=== PATIENT | male | born 1935 | race Caucasian/White ===

== ENCOUNTER → 2017-07-29 | Outpatient (CLI) | payer MEDICARE, BC ==
[~2017-07-29] MED LIST: REGADENOSON INJ 0.4 MG/5 ML DISP.SYRIN IV ONE
--- NOTE | 2017-07-29 18:22 | DRAGON STRESS TEST REPORT ---
INTRAVENOUS LEXISCAN CARDIOLITE STRESS TEST USING SINGLE PHOTON EMMISION COMPUTERIZED TOMOGRAPHIC. DATE OF PROCEDURE: July 29, 2017, INDICATION : Dyspnea CARDIAC RISK FACTORS: Diabetes, hypertension, dyslipidemia, known history of CAD with prior stent placement. RESTING EKG: Sinus rhythm without any baseline ST-T wave changes. STRESS EKG: No significant ST segment changes noted with LexiScan bolus REASON FOR TERMINATION: Protocol. PROCEDURE REPORT: Baseline heart rate 68 beats per minute with blood pressure of 124/62. Patient had no significant complaints. Patient was bolused with Lexiscan 0.4 mg intravenously followed by saline bolus. Heart rate at 2 minutes post bolus 85 with a blood pressure of 124/41. 3 minutes post bolus heart rate 87 with blood pressure of 117/44. No significant EKG changes were noted. Patient had no significant complaints during the procedure or postprocedure. Patient injected with Aminophyllin 75 mg at 3 minutes or later after Lexiscan bolus. CONCLUSIONS: Normal EKG and hemodynamic response to IV LexiScan. NUCLEAR DATA: At rest the patient was given 13.76 millicuries of technetium 99 sestamibi injected intravenously. As per protocol rest gated SPECT images were obtained. On day of stress test, the patient was given intravenous LexiScan at a dose of 0.4 mg in 5 mL intravenously, followed by flush with normal saline. Subsequently the stress dose of 44.8 millicuries of technetium 99 sestamibi was injected intravenously. As per protocol stress gated images were obtained. NUCLEAR INTERPRETATION: Both raw and processed data were used for interpretation. Visual, qualitative, computer-generated quantitative data was used. There was good myocardial uptake of technetium compound. Motion artifact and soft tissue attenuations were noted. Increased visceral uptake was noted. No definitive areas of transient perfusion defect noted, moderate fixed defect noted indicative of moderate scar in the basal and mid inferolateral wall of the left ventricle with minimal area of surrounding transient perfusion defect with SDS of only 2 therefore not significant area ischemia. EKG gated imaging showed LV EF at 49 %, rest and stress gated EF similar visually. T. I D. ratio was 1.22. Lung heart ratio noted to be within normal limits 0.36. No significant extracardiac and abnormal radiotracer activities were noted. RV free wall uptake was noted to be WNL. IMPRESSION: Also refer to comments under nuclear interpretation. Also test results needs to be interpreted in the context of pretest probability. 1. No definitive areas of transient perfusion defect noted. 2. Moderate fixed defect noted indicative of moderate scar in the basal and mid inferolateral wall of the left ventricle with minimal area of surrounding transient perfusion defect with SDS of only 2 therefore not significant area ischemia. 3. EKG gated imaging shows left ventricular ejection fraction of approx. 49 %. 4. Clinical correlation requested as occasionally single vessel disease or balanced ischemia could be missed. In approximately 10% of the cases Lexiscan may not cause adequate vasodilatory stress. RECOMMENDATIONS: Aggressive risk factor modification and medical management. Further evaluation may be needed if continued symptoms or other high risk indicators are noted on clinical evaluation. Close cardiology follow-up is also recommended. Clinical correlation with echocardiogram derived ejection fraction. Inability to exercise by itself can lead to increased cardiovascular event risks. Consider cardiology consultation and or follow-up if clinically indicated. I am available for cardiology evaluation and consultation if requested by the sea foam kiss maker, unless patient already has a bias cutter helper. PAIGE
== END ==
LOC: RAD 08:00
PROVIDERS: ATTEND Internal Medicine Cardiovascular Disease
DX: R06.00 Dyspnea, unspecified (principal); E11.9 Type 2 diabetes mellitus without complications; I10 Essential (primary) hypertension; E78.5 Hyperlipidemia, unspecified; I25.10 Atherosclerotic heart disease of native coronary artery without angina pectoris
CPT/HCPCS: 93017; 78452; A9500; J2785; Q9969

== ENCOUNTER → 2018-02-01 | Outpatient (CLI) | payer MEDICARE, BC ==
--- NOTE | 2018-02-01 13:49 | RADIOLOGY REPORT (SQ) ---
EXAM DESCRIPTION: CT CHEST WITHOUT COMPLETED DATE/TIME: 02/01/2018 1:21 pm REASON FOR STUDY: R06.00 DYSPNEA, UNSPECIFIED R06.00 DYSPNEA, UNSPECIFIED COMPARISON: None. TECHNIQUE: CT scan performed of the chest without intravenous contrast. Images reviewed with lung, soft tissue and bone windows. Reconstructed coronal and sagittal MPR images reviewed. All images st ored on PACS. All CT scanners at this facility use dose modulation, iterative reconstruction, and/or weight based d osing when appropriate to reduce radiation dose to as low as reasonably achievable (ALARA). [facility]: Dose Right [facility]: CareDose [facility]: Dose Right [facility]: Teradose 4D [facility]: [employer] RADIATION DOSE: CT Rad equipment meets quality standard of care and radiation dose reduction techniq ues were employed. CTDIvol: 18.7 mGy. DLP: 708 mGy-cm. mGy. LIMITATIONS: No technical limitations. FINDINGS: LUNGS AND PLEURA: Chronic appearing elevation right hemidiaphragm with bandlike scarring o r atelectasis at the right lung base. On the left side there are pleural calcifications without pleural fluid. No focal infiltrates. No pulmonary nodules. No pneumothorax. Airways are patent. HILAR AND MEDIASTINAL STRUCTURES: No identified masses or abnormal nodes. No obvious aneurysm. HEART AND VASCULAR STRUCTURES: No aneurysm. No pericardial effusion. Dense coronary artery calcific ation versus multiple stents along the LAD UPPER ABDOMEN: Clips post cholecystectomy THYROID AND OTHER SOFT TISSUES: No masses. No adenopathy. BONES: No significant finding. HARDWARE: None in the chest. OTHER: No other significant findings. IMPRESSION: Chronic elevation right hemidiaphragm with bandlike atelectasis. TECHNICAL DOCUMENTATION: JOB ID: [id number] Quality ID # [id number]: Final reports with documentation of one or more dose reduction techniques (e.g., Au tomated exposure control, adjustment of the mA and/or kV according to patient size, use of iterative reconstruction technique) 2010 [employer]- All Rights Reserved Reading location - IP/workstation name: [email or web address]
== END ==
LOC: RAD 15:07
PROVIDERS: ATTEND Internal Medicine Pulmonary Disease
DX: R06.00 Dyspnea, unspecified (principal)
CPT/HCPCS: 71250

== ENCOUNTER 2018-08-06 18:11 | Inpatient (IN) | payer MEDICARE, BC ==
[2018-08-06] MEDS ORDERED: ASPIRIN 81 MG TABLET, CHEWABLE PO ONE (19:06)
[2018-08-06] MEDS ORDERED: DIPH/PERTUSS(ACELL)/TETANUS VAC/PF 0.5 ML SYR (>=10YO) IM ONE (19:07)
--- NOTE | 2018-08-06 19:14 | ER Document Report ---
ED Medical Screen (RME) - General Chief Complaint: Chest Pain Stated Complaint: CHEST PAIN Time Seen by Provider: 08/06/18 19:06 Primary Care Provider: DENAE RAMIREZ MD [Primary Care Provider] - Follow up as needed Mode of Arrival: Wheelchair Information source: Patient Notes: Patient states that he was walking this afternoon and fell. Patient complains of right-sided chest pain and does not recall if he had pain before the fall but definitely had pain after the fall. Patient is uncertain what may have caused him to fall. Patient also complains of abrasions to the bilateral knee area and right hand pain with swelling. Patient denies any headache pain. Patient's states that her told her that he may have fainted, patient presently denies this. hx: Hypothyroid, COPD, hypertension, cardiac stents I have greeted and performed a rapid initial assessment of this patient. A comprehensive ED assessment and evaluation of the patient, analysis of test results and completion of the medical decision making process will be conducted by additional ED providers. TRAVEL OUTSIDE OF THE [place] IN LAST 30 DAYS: No - Related Data Allergies/Adverse Reactions: codeine [Codeine] Allergy (Intermediate, Verified 04/06/11 15:23) Past Medical History - Past Medical History Cardiac Medical History: Reports: Hx Hypercholesterolemia, Hx Hypertension - MEDICATED Denies: Hx Heart Attack Pulmonary Medical History: Denies: Hx Asthma Neurological Medical History: Denies: Hx Cerebrovascular Accident, Hx Seizures GI Medical History: Denies: Hx Hepatitis, Hx Hiatal Hernia, Hx Ulcer Infectious Medical History: Denies: Hx Hepatitis Past Surgical History: Denies: Hx Open Heart Surgery, Hx Pacemaker - Immunizations Hx Diphtheria, Pertussis, Tetanus Vaccination: No Physical Exam - Vital signs Vitals: Temp Pulse Resp BP Pulse Ox 97.2 F 58 L 13 131/47 H 95 08/06/18 18:32 08/06/18 18:32 08/06/18 18:32 08/06/18 18:32 08/06/18 18:32 - General Notes: Abrasions to face, right knee, bruising with swelling to right hand - Respiratory Chest status: Tender - Right anterior chest wall tenderness Course - Vital Signs Vital signs: Temp Pulse Resp BP Pulse Ox 97.2 F 58 L 13 131/47 H 95 08/06/18 18:32 08/06/18 18:32 08/06/18 18:32 08/06/18 18:32 08/06/18 18:32 Doctor's Discharge - Discharge Referrals: DENAE RAMIREZ MD [Primary Care Provider] - Follow up as needed
[2018-08-06 20:01] LABS: ABSOLUTE BASOPHILS # (AUTO) 0.1 10^3/uL (0.0-0.2); ABSOLUTE EOSINOPHILS # (AUTO) 0.6 10^3/uL (0.0-0.6); ABSOLUTE LYMPHOCYTES (AUTO) 2.5 10^3/uL (0.5-4.7); ABSOLUTE MONOCYTES (AUTO) 1.3 10^3/uL (0.1-1.4); ABSOLUTE NEUT (AUTO) 6.5 10^3/uL (1.7-8.2); BASOPHILS % (AUTO) 0.8 % (0-2); EOSINOPHILS % (AUTO) 5.8 % (0-6); HEMOGLOBIN 12.9 g/dL (13.5-17.0); LYMPHOCYTES % (AUTO) 22.7 % (13-45); MEAN CORPUSCULAR HEMOGLOBIN 27.8 pg (27.0-33.4); MEAN CORPUSCULAR VOLUME 84 fl (80-97); MONOCYTES % (AUTO) 11.5 % (3-13); PLATELET COUNT 273 10^3/uL (150-450); RED BLOOD COUNT 4.62 10^6/uL (4.35-5.55); RED CELL DISTRIBUTION WIDTH 14.4 % (11.5-14.0); SEGMENTED NEUTROPHILS % (AUTO) 59.2 % (42-78); TOTAL CELLS COUNTED % (AUTO) 100 %
[2018-08-06 20:25] LABS: ALANINE AMINOTRANSFERASE 14 U/L (21-72); ALBUMIN 4.3 g/dL (3.5-5.0); ALKALINE PHOSPHATASE 74 U/L (38-126); ANION GAP 10 (5-19); ASPARTATE AMINO TRANSFERASE 33 U/L (17-59); BILIRUBIN,DIRECT 0.5 mg/dL (0.0-0.4); BILIRUBIN,TOTAL 0.5 mg/dL (0.2-1.3); BLOOD UREA NITROGEN 17 mg/dL (7-20); CALCIUM 9.7 mg/dL (8.4-10.2); CARBON DIOXIDE 28 mmol/L (22-30); CHLORIDE 103 mmol/L (98-107); GLUCOSE 163 mg/dL (75-110); POTASSIUM 4.3 mmol/L (3.6-5.0); SODIUM 140.6 mmol/L (137-145); TOTAL PROTEIN 7.9 g/dL (6.3-8.2)
--- NOTE | 2018-08-06 20:41 | RADIOLOGY REPORT (SQ) ---
EXAM DESCRIPTION: XR HAND 3 OR MORE VIEWS COMPLETED DATE/TME: 08/06/2018 19:07 EXAM DESCRIPTION: CLINICAL HISTORY: fall, hand injury COMPARISON: None FINDINGS: Three x-ray views of the right hand were submitted. There is narrowing of the interphalangeal joints and osteophytic formation more pronounced at the second and third distal interphalangeal joint. There is also narrowing of the first carpometacarpal junction. There is no acute fracture or dislocation. Bone mineralization is within normal limits. There is no radiopaque foreign body material. IMPRESSION: No acute fracture or dislocation.
--- NOTE | 2018-08-06 20:46 | RADIOLOGY REPORT (SQ) ---
EXAM DESCRIPTION: XR CHEST 2 VIEWS COMPLETED DATE/TME: 08/06/2018 19:06 CLINICAL HISTORY: fall, cp COMPARISON: CT February 01, 2018 FINDINGS: Cardiac silhouette is within normal limits. There is elevation of the right hemidiaphragm. Unchanged compared with the prior exam. EKG leads project over the chest. Linear calcification at the level of the left hemidiaphragm compatible with a calcified pleural plaque. There is no acute osseous process visualized. IMPRESSION: No evidence of acute cardiopulmonary disease.
--- NOTE | 2018-08-06 20:52 | RADIOLOGY REPORT (SQ) ---
EXAM DESCRIPTION: CT HEAD WITHOUT IV CONTRAST COMPLETED DATE/TME: 08/06/2018 19:13 CLINICAL HISTORY: fall, facial abrasions COMPARISON: None Available. TECHNIQUE: Contiguous axial images of the brain were obtained without the administration of intravenous contrast.This exam was performed according to our departmental dose-optimization program, which includes automated exposure control, adjustment of the mA and/or kV according to patient size and/or use of iterative reconstruction technique. FINDINGS: There is no acute intracranial hemorrhage or mass effect. There is atherosclerosis. Areas of low attenuation in the periventricular and subcortical white matter are nonspecific but suggestive of small vessel disease. There is generalized atrophy. Ventricular system is within normal limits. There is adequate galarza-white matter differentiation. There is no skull fracture. Abnormal opacification of the left sphenoid sinus compatible with chronic sinusitis changes. IMPRESSION: No acute intracranial abnormalities.
--- NOTE | 2018-08-06 20:56 | RADIOLOGY REPORT (SQ) ---
EXAM DESCRIPTION: CT CERVICAL SPINE WITHOUT IV CONTRAST COMPLETED DATE/TME: 08/06/2018 19:11 CLINICAL HISTORY: fall COMPARISON: None Available TECHNIQUE: Contiguous axial images of the cervical spine were obtained without the administration of intravenous contrast followed by reconstruction images. This exam was performed according to our departmental dose-optimization program, which includes automated exposure control, adjustment of the mA and/or kV according to patient size and/or use of iterative reconstruction technique. FINDINGS: There is no acute fracture or subluxation. Prevertebral soft tissues are within normal limits. There is right neural foramina narrowing at C3-C4 and bilateral neural foramina narrowing at C4-C5, IMPRESSION: No acute fracture or subluxation. Degenerative changes.
--- NOTE | 2018-08-06 22:09 | RADIOLOGY REPORT (SQ) ---
EXAM DESCRIPTION: Right ribs RadLex: XR RIBS 2 VIEWS UNILATERAL CLINICAL HISTORY: 82 years Male, right anterior rib pain at ribs 1-4, ecchymosis COMPARISON: Chest radiograph today FINDINGS: No acute displaced rib fractures. There is elevation of right hemidiaphragm and right upper quadrant surgical clips, as seen on the chest radiograph. No pneumothorax. No lytic or blastic right rib lesions. IMPRESSION: No right rib fracture or focal right rib lesion.
[2018-08-06 22:35] LABS: APPEARANCE,URINE CLEAR; BILIRUBIN,URINE NEGATIVE (NEGATIVE); COLOR,URINE YELLOW; GLUCOSE, URINE NEGATIVE (NEGATIVE); KETONES,URINE NEGATIVE (NEGATIVE); LEUKOCYTE ESTERASE,URINE NEGATIVE (NEGATIVE); NITRITE,URINE NEGATIVE (NEGATIVE); PROTEIN,URINE NEGATIVE (NEGATIVE); URINE SPECIFIC GRAVITY 1.018; UROBILINOGEN,URINE NEGATIVE mg/dL (<2.0)
--- NOTE | 2018-08-06 23:01 | ER Document Report ---
ED General - General Chief Complaint: Chest Pain Stated Complaint: CHEST PAIN Time Seen by Provider: 08/06/18 19:06 Primary Care Provider: DENAE RAMIREZ MD [Primary Care Provider] - Follow up as needed Mode of Arrival: Wheelchair Information source: Patient, Relative - , Son Notes: Patient is an 82-year-old male presented to the emergency department with compl aints of right-sided chest pain after suffering a fall. Patient reports he was out walking his dog when he thinks he may have passed out. He states he fell from a standing position onto concrete. He has an abrasion and ecchymosis noted to the right anterior chest wall which is where his pain is. He denies any symptoms prior to the fall. Patient reports past medical history of COPD, hypertension, stent placement and prediabetes. TRAVEL OUTSIDE OF THE [place] IN LAST 30 DAYS: No - Related Data Allergies/Adverse Reactions: codeine [Codeine] Allergy (Intermediate, Verified 04/06/11 15:23) Past Medical History - General Information source: Patient - Social History Smoking Status: Never Smoker Chew tobacco use (# tins/day): No Frequency of alcohol use: None Drug Abuse: None Family History: Reviewed & Not Pertinent Patient has suicidal ideation: No Patient has homicidal ideation: No - Past Medical History Cardiac Medical History: Reports: Hx Hypercholesterolemia, Hx Hypertension - MEDICATED Denies: Hx Heart Attack Pulmonary Medical History: Denies: Hx Asthma Neurological Medical History: Denies: Hx Cerebrovascular Accident, Hx Seizures Renal/ Medical History: Denies: Hx Peritoneal Dialysis GI Medical History: Denies: Hx Hepatitis, Hx Hiatal Hernia, Hx Ulcer Infectious Medical History: Denies: Hx Hepatitis Past Surgical History: Denies: Hx Open Heart Surgery, Hx Pacemaker - Immunizations Hx Diphtheria, Pertussis, Tetanus Vaccination: No Hx Pneumococcal Vaccination: 03/08/10 Review of Systems - Review of Systems Constitutional: No symptoms reported EENT: No symptoms reported Cardiovascular: Chest pain Respiratory: No symptoms reported Gastrointestinal: No symptoms reported Genitourinary: No symptoms reported Male Genitourinary: No symptoms reported Musculoskeletal: See HPI Skin: No symptoms reported Hematologic/Lymphatic: No symptoms reported Neurological/Psychological: No symptoms reported Physical Exam - Vital signs Vitals: Temp Pulse Resp BP Pulse Ox 97.2 F 58 L 13 131/47 H 95 08/06/18 18:32 08/06/18 18:32 08/06/18 18:32 08/06/18 18:32 08/06/18 18:32 - Notes Notes: PHYSICAL EXAMINATION: GENERAL: Well-appearing, well-nourished and in no acute distress. HEAD: Atraumatic, normocephalic. EYES: Pupils equal round and reactive to light, extraocular movements intact, sclera anicteric, conjunctiva are normal. ENT: Nares patent, oropharynx clear without exudates. Moist mucous membranes. NECK: Normal range of motion, supple without lymphadenopathy LUNGS: Breath sounds clear to auscultation bilaterally and equal. No wheezes ra les or rhonchi. HEART: Regular rate and rhythm without murmurs ABDOMEN: Soft, nontender, nondistended abdomen. No guarding, no rebound. No masses appreciated. Musculoskeletal: Normal range of motion, no pitting or edema. No cyanosis. Tenderness to palpation to anterior chest wall near ribs 1, 2, 3 and 4. NEUROLOGICAL: Cranial nerves grossly intact. Normal speech. Normal sensory, motor exams PSYCH: Normal mood, normal affect. SKIN: Warm, Dry, normal turgor, no rashes noted. Ecchymosis noted just distal to right clavicular area. Course - Re-evaluation Re-evalutation: Patient is alert, oriented, answering all questions appropriately and in no acute distress at the time of my evaluation. Vital signs have been within normal limits. All imaging is negative for any acute fractures or dislocations. CMP, CBC and troponin are negative. EKG shows a sinus rhythm rate of 68, QTc 464, normal axis, no ST segment elevations or depressions to suggest ischemia. Will consult hospitalist for possible admission for syncope work-up. Patient accepted for admission by Dr. Stahl. Patient and family members updated on plan of care and are agreeable to same. - Vital Signs Vital signs: Temp Pulse Resp BP Pulse Ox 97.2 F 58 L 13 121/61 95 08/06/18 18:32 08/06/18 18:32 08/06/18 21:01 08/06/18 21:01 08/06/18 21:01 - Laboratory Result Diagrams: 08/06/18 19:48 08/06/18 19:48 Laboratory results interpreted by me: 08/06/18 08/06/18 19:48 19:48 WBC 11.0 H Hgb 12.9 L RDW 14.4 H Glucose 163 H Direct Bilirubin 0.5 H ALT 14 L Discharge - Discharge Clinical Impression: Syncope, Fall Condition: Stable Disposition: ADMITTED OBSERVATION Admitting Provider: Favio (Hospitalist) Unit Admitted: Telemetry Referrals: DENAE RAMIREZ MD [Primary Care Provider] - Follow up as needed
[2018-08-06] MEDS ORDERED: TRAMADOL HCL 50 MG TABLET PO PRN (23:28)
[2018-08-06] MEDS ORDERED: TEMAZEPAM 7.5 MG CAPSULE PO PRN (23:31)
[2018-08-06] MEDS ORDERED: MAG HYDROX/AL HYDROX/SIMETH SUSP 30 ML UDCUP PO PRN (23:31)
[2018-08-06] MEDS ORDERED: MAGNESIUM HYDROXIDE SUSP 30 ML UDCUP PO PRN (23:31)
[2018-08-06] MEDS ORDERED: ONDANSETRON HCL INJ/PF 4 MG/2 ML SDV IV PRN (23:31)
[2018-08-06] MEDS ORDERED: LEVALBUTEROL HCL NEB 0.63 MG/3 ML AMPUL NEB PRN (23:36)
[2018-08-06] MEDS ORDERED: INSULIN REG, HUMAN 100 UNIT/ML 3 ML VIAL (PYX) SUBCUT PRN (23:36)
[2018-08-06] MEDS ORDERED: NALBUPHINE HCL INJ 10 MG/1 ML AMPULE IV PRN (23:36)
[2018-08-06] MEDS ORDERED: DEXTROSE 40% GEL 15 GM TUBE PO PRN ×2 (23:37)
[2018-08-06] MEDS ORDERED: DEXTROSE 50%-WATER 25 GM/50 ML DISP.SYRIN IV PRN ×2 (23:37)
[2018-08-06] MEDS ORDERED: GLUCAGON,HUMAN RECOMB 1 MG INJ IM PRN (23:37)
--- NOTE | 2018-08-06 23:43 | EKG REPORT ---
SEVERITY:- NORMAL ECG - SINUS RHYTHM : Confirmed by: Esla Santana MD 06-Aug-2018 23:43:02
[2018-08-06] MEDS ORDERED: ATORVASTATIN CALCIUM 20 MG TABLET PO ONE (23:45)
[2018-08-06] MEDS: LEVALBUTEROL HCL NEB 1.25 MG/3 ML AMPUL NEB SCH (23:57)
[2018-08-06] MEDS: IPRATROPIUM BROMIDE 0.02% NEB 0.5 MG/2.5 ML AMPUL NEB SCH (23:58)
[2018-08-07 00:29] LABS: CREATINE KINASE MB 0.45 ng/mL (<4.55); TROPONIN I < 0.012 ng/mL
--- NOTE | 2018-08-07 02:20 | PDOC H&P ---
History of Present Illness Admission Date/PCP: 08/06/2018 22:50 DENAE RAMIREZ MD Patient complains of: Syncopal episode History of Present Illness: GEOFF BROWN is a 82 year old male who presented to the emergency room with a syncopal episode. He admits that he was walking at home this afternoon and suddenly fell to the ground face first. He commented to his after the incident that he thought he may have fainted, and currently he has no memory of what may have caused him to fall. He remembers events prior to the fall and denies nausea, palpitations, dizziness, pain or other symptoms, but he does not remember the actual fall. He sustained contusions and abrasions to his face, right knee and both hands as well as a contusion to his right clavicular chest area in the fall. He complains only of mild local pain in his hands and mild to moderate pain in his right sub-clavicular chest. He denies prior similar episodes and has not identified any aggravating or ameliorating factors for his syncopal episode. In the emergency room he was found to have negative x-rays of his right hand, chest and ribs. He was also found to have a negative CT scan of his head and neck. He was subsequently admitted to the hospital for further evaluation. Past Medical History Cardiac Medical History: Reports: Coronary Artery Disease, Hyperlipidema, Hypertension - MEDICATED Denies: Myocardial Infarction Pulmonary Medical History: Reports: Bronchitis, Chronic Obstructive Pulmonary Disease (COPD) Denies: Asthma, Intubation, Respiratory Failure EENT Medical History: Reports: Eyes - Prescription lenses Denies: Cataracts, Ears - Hearing aids Neurological Medical History: Denies: Hemorrhagic CVA, Ischemic CVA, Seizures Endocrine Medical History: Reports: Diabetes Mellitus Type 2 - Prediabetic, Hypothyroidism Denies: Diabetes Mellitus Type 1, Hyperthyroidism Renal/ Medical History: Denies: Chronic Kidney Disease, Nephrolithiasis Malignancy Medical History: Reports: None GI Medical History: Denies: Cirrhosis, Hepatitis, Hiatal Hernia Musculoskeltal Medical History: Reports: Arthritis Denies: Fibromyalgia, Gout Skin Medical History: Denies: Eczema, Psoriasis Psychiatric Medical History: Denies: Alcohol Dependency, Substance Abuse, Tobacco Dependency Traumatic Medical History: Reports: None Hematology: Denies: Anemia, Bleeding Tendencies Infectious Medical History: Reports: None Past Surgical History Past Surgical History: Reports: Cardiac Catheterization, Coronary Stent Social History Information Source: Patient Lives with: Spouse/Significant other Smoking Status: Former Smoker - Smoked minimally in the very remote past Frequency of Alcohol Use: None Hx Recreational Drug Use: No Drugs: None Hx Prescription Drug Abuse: No - Advance Directive Resuscitation Status: Full Code Surrogate healthcare decision maker:: Trina Brown Family History Family History: Malignancy - Mother. denies: CAD, CVA, DM, Hypertension Parental Family History Reviewed: Yes Children Family History Reviewed: No Sibling(s) Family History Reviewed.: Yes Medication/Allergy Home Medications: Acidophilus/Pectin, [place] [Acidophilus [place]] 1 each PO DAILY 04/06/11 Atorvastatin Calcium [Lipitor 20 Mg Tablet] 20 mg PO QHS 04/06/11 Furosemide [Lasix 40 mg Tablet] 40 mg PO QAM 04/06/11 Losartan Potassium [Cozaar 50 Mg Tablet] 50 mg PO DAILY 04/06/11 Meloxicam 15 mg PO DAILY 04/06/11 Multivitamin [Multivitamins] 1 each PO DAILY 04/06/11 [place]-3 Fatty Acids/Fish Oil [Fish Oil 1,000 Mg Capsule] 1 each PO BID 04/06/11 Potassium Chloride [Klor-Con 10 Meq Tablet.sa] 10 meq PO DAILY 04/06/11 Clopidogrel Bisulfate [Plavix 75 mg Tablet] 75 mg PO DAILY 03/14/13 Levothyroxine Sodium [Synthroid] 100 mcg PO DAILY 03/14/13 Nepafenac [Ilevro] 1.7 ml OP DAILY 03/14/13 Tramadol HCl 50 mg PO DAILY 03/14/13 Allergies/Adverse Reactions: codeine [Codeine] Allergy (Intermediate, Verified 04/06/11 15:23) Review of Systems Constitutional: ABSENT: chills, fever(s) Eyes: ABSENT: visual disturbances, other - Eye pain Ears: ABSENT: hearing changes, other - Ear pain Nose, Mouth, and Throat: ABSENT: mouth pain, sore throat Cardiovascular: PRESENT: as per HPI, chest pain - Pain in the right clavicular region secondary to contusion sustained in fall. ABSENT: dyspnea on exertion, e gonzalez, orthropnea, palpitations Respiratory: ABSENT: cough, dyspnea Gastrointestinal: ABSENT: abdominal pain, constipation, diarrhea, nausea, vomiting Genitourinary: ABSENT: dysuria, hematuria Musculoskeletal: PRESENT: as per HPI, other - Contusions and abrasions of bilateral knees and right hand. ABSENT: back pain Integumentary: PRESENT: as per HPI, wounds - Abrasions of bilateral knees and right hand. ABSENT: pruritus, rash Neurological: PRESENT: as per HPI, syncope, other - States vaguely that his "head hasn't been right for a long time". He has been "foggy" for a couple of years.. ABSENT: confusion, convulsions, focal weakness, memory loss Psychiatric: ABSENT: anxiety, depression Endocrine: ABSENT: cold intolerance, heat intolerance Hematologic/Lymphatic: ABSENT: easy bleeding, easy bruising Physical Exam Vital Signs: Temp Pulse Resp BP Pulse Ox 97.2 F 58 L 13 121/61 95 08/06/18 18:32 08/06/18 18:32 08/06/18 21:01 08/06/18 21:01 08/06/18 21:01 Intake & Output 08/04/18 08/05/18 08/06/18 23:59 23:59 23:59 Weight 95.254 kg General appearance: PRESENT: no acute distress, cooperative Head exam: PRESENT: normocephalic. ABSENT: atraumatic - Mild contusions and moderate abrasions noted involving the nasal bridge Eye exam: ABSENT: conjunctival injection, scleral icterus Ear exam: PRESENT: normal external ear exam. ABSENT: bleeding, drainage Mouth exam: PRESENT: dry mucosa, neck supple Teeth exam: ABSENT: dental tenderness, other - No apparent dental injury Neck exam: ABSENT: JVD, thyromegaly, tracheal deviation Respiratory exam: PRESENT: chest wall tenderness - Mild tenderness to palpation in the right clavicular area of the right anterior chest., clear to auscultation catia, symmetrical, unlabored Cardiovascular exam: PRESENT: RRR. ABSENT: clicks, gallop, rubs Pulses: PRESENT: normal radial pulses, normal dorsalis pedis pul Vascular exam: PRESENT: normal capillary refill. ABSENT: pallor GI/Abdominal exam: PRESENT: normal bowel sounds, soft Rectal exam: PRESENT: deferred Extremities exam: PRESENT: tenderness - Contusions and abrasions of right knee and both hands (right greater than left). ABSENT: joint swelling, pedal edema Musculoskeletal exam: ABSENT: deformity, dislocation Neurological exam: PRESENT: alert, oriented to person, oriented to place, oriented to time, oriented to situation, CN II-XII grossly intact. ABSENT: mot or sensory deficit Psychiatric exam: PRESENT: appropriate affect, normal mood Skin exam: PRESENT: dry, warm, other - Contusions and abrasions of face/nose, right knee and both hands. ABSENT: jaundice, rash, urticaria Results Laboratory Results: 08/06/18 19:48 08/06/18 19:48 08/06/18 08/06/18 08/06/18 19:48 19:48 22:13 WBC 11.0 H RBC 4.62 Hgb 12.9 L Hct 39.0 MCV 84 MCH 27.8 MCHC 33.0 RDW 14.4 H Plt Count 273 Seg Neutrophils % 59.2 Lymphocytes % 22.7 Monocytes % 11.5 Eosinophils % 5.8 Basophils % 0.8 Absolute Neutrophils 6.5 Absolute Lymphocytes 2.5 Absolute Monocytes 1.3 Absolute Eosinophils 0.6 Absolute Basophils 0.1 Sodium 140.6 Potassium 4.3 Chloride 103 Carbon Dioxide 28 Anion Gap 10 BUN 17 Creatinine 1.15 Est GFR ( Amer) > 60 Est GFR (Non-Af Amer) > 60 Glucose 163 H Calcium 9.7 Total Bilirubin 0.5 AST 33 ALT 14 L Alkaline Phosphatase 74 Total Protein 7.9 Albumin 4.3 Urine Color YELLOW Urine Appearance CLEAR Urine pH 5.0 Ur Specific [place] 1.018 Urine Protein NEGATIVE Urine Glucose (UA) NEGATIVE Urine Ketones NEGATIVE Urine Blood NEGATIVE Urine Nitrite NEGATIVE Ur Leukocyte Esterase NEGATIVE Urine WBC (Auto) 1 Urine RBC (Auto) 1 08/06/18 19:48 Troponin I < 0.012 Impressions: Chest X-Ray 08/06/18 19:06 IMPRESSION: No evidence of acute cardiopulmonary disease. Hand X-Ray 08/06/18 19:07 IMPRESSION: No acute fracture or dislocation. Cervical Spine CT 08/06/18 19:11 IMPRESSION: No acute fracture or subluxation. Degenerative changes. Head CT 08/06/18 19:13 IMPRESSION: No acute intracranial abnormalities. Ribs X-Ray 08/06/18 21:20 IMPRESSION: No right rib fracture or focal right rib lesion. Assessment and Plan - Diagnosis (1) Episode of syncope Qualifiers: Syncope type: unspecified Qualified Code(s): R55 - Syncope and collapse Is this a current diagnosis for this admission?: Yes Plan: Patient will be evaluated with a carotid Doppler and an echocardiogram as well as telemetry monitoring throughout his hospital course. Potential causes of syncope will be evaluated utilizing a thyroid profile and serial metabolic profiles, magnesium levels and Accu-Cheks. (2) Coronary artery disease Qualifiers: Coronary Disease-Associated Artery/Lesion type: [place] artery [place] vs. transplanted heart: [place] heart Associated angina: without angina Qualified Code(s): I25.10 - Atherosclerotic heart disease of [place] coronary artery without angina pectoris Is this a current diagnosis for this admission?: Yes Plan: Patient will be continued on his current medical regiment for coronary artery disease with adjustments made only as required for therapeutic reasons. He will be monitored on telemetry. (3) Hypertension Qualifiers: Hypertension type: essential hypertension Qualified Code(s): I10 - Essen tial (primary) hypertension Is this a current diagnosis for this admission?: Yes Plan: Patient be continued on his current antihypertensive regiment with changes being made only as required for therapeutic reasons. His vital signs will be mon itored closely during his hospital course. (4) Chronic obstructive pulmonary disease Qualifiers: COPD type: unspecified COPD Qualified Code(s): J44.9 - Chronic obstructive pulmonary disease, unspecified Is this a current diagnosis for this admission?: Yes Plan: Patient be maintained on a routine therapeutic regiment for chronic obstructive pulmonary disease during his hospital course utilizing nebulized Xopenex, Atrovent and Pulmicort. He will receive supplemental oxygen if required. (5) Contusion of right chest wall Qualifiers: Encounter type: initial encounter Qualified Code(s): S20.211A - Contusion of right front wall of thorax, initial encounter Is this a current diagnosis for this admission?: Yes Plan: Patient will have available acetaminophen and tramadol for pain control with Nubain 10 mg IV every 3 hours as needed for more severe pain. (6) Multiple abrasions Is this a current diagnosis for this admission?: Yes Plan: Bactroban ointment will be applied to abrasions 2 times daily and dressings will be applied as needed. Wounds will be cleansed 2 times daily with soap and water prior to dressing. Wound will be closely observed for any signs of infect ion or excessive bleeding. - Time Time Spent with patient: 25-34 minutes Medications reviewed and adjusted accordingly: Yes Anticipated discharge: Home - Inpatient Certification Based on my medical assessment, after consideration of the patient's comorbidities, presenting symptoms, or acuity I expect that the services needed warrant INPATIENT care.: Yes I certify that my determination is in accordance with my understanding of Medicare's requirements for reasonable and necessary INPATIENT services [42 CFR 412.3e].: Yes Medical Necessity: Significant Comorbidiites Make Outpatient Treatment Too Risky, Need Close Monitoring Due to Risk of Patient Decompensation, Need For Continuous Telemetry Monitoring, Need for Neurological Checks, Need for Pain Control, Risk of Complication if Not Cared For in Hospital
[2018-08-07] MEDS ORDERED: HEPARIN SOD (PORCINE) 5,000 UNIT/ML 1 ML SYRINGE SUBCUT SCH (06:00)
[2018-08-07 06:34] LABS: HEMATOCRIT 38.1 % (37.9-51.0); HEMOGLOBIN 12.4 g/dL (13.5-17.0); MEAN CORPUSCULAR HEMOGLOBIN 27.4 pg (27.0-33.4); MEAN CORPUSCULAR HGB CONC 32.6 g/dL (32.0-36.0); MEAN CORPUSCULAR VOLUME 84 fl (80-97); PLATELET COUNT 252 10^3/uL (150-450); RED BLOOD COUNT 4.54 10^6/uL (4.35-5.55); RED CELL DISTRIBUTION WIDTH 14.6 % (11.5-14.0); WHITE BLOOD COUNT 9.2 10^3/uL (4.0-10.5)
[2018-08-07 06:55] LABS: ANION GAP 9 (5-19); BLOOD UREA NITROGEN 15 mg/dL (7-20); CALCIUM 9.5 mg/dL (8.4-10.2); CARBON DIOXIDE 31 mmol/L (22-30); CHLORIDE 104 mmol/L (98-107); CHOLESTEROL 140.23 mg/dL (0-200); CREATINE KINASE 135 U/L (55-170); GLUCOSE 105 mg/dL (75-110); POTASSIUM 4.1 mmol/L (3.6-5.0); SODIUM 143.7 mmol/L (137-145); TRIGLYCERIDES 171 mg/dL (<150)
[2018-08-07 07:11] LABS: DIRECT LDL 80 mg/dL (<100)
[2018-08-07 07:12] LABS: VLDL CHOLESTEROL 34.2 mg/dL (10-31)
[2018-08-07 07:19] LABS: CREATINE KINASE MB 0.48 ng/mL (<4.55); NT PRO BNP 400 pg/mL (<450)
[2018-08-07 07:25] LABS: FREE T3 3.28 pg/mL (2.77-5.27); FREE T4 (FREE THYROXINE) 1.23 ng/dL (0.78-2.19)
[2018-08-07 07:26] LABS: TROPONIN I < 0.012 ng/mL
[2018-08-07 07:38] LABS: THYROID STIMULATING HORMONE 3.25 uIU/mL (0.47-4.68)
[2018-08-07] MEDS: IPRATROPIUM BROMIDE 0.02% NEB 0.5 MG/2.5 ML AMPUL NEB SCH (07:45)
[2018-08-07] MEDS: LEVALBUTEROL HCL NEB 1.25 MG/3 ML AMPUL NEB SCH (07:46)
[2018-08-07] MEDS ORDERED: FUROSEMIDE 40 MG TABLET PO SCH (08:00)
[2018-08-07] MEDS ORDERED: BUDESONIDE NEB 0.5 MG/2 ML AMPUL NEB SCH (08:00)
[2018-08-07 08:28] VITALS: BP 147/65
[2018-08-07] MEDS ORDERED: LEVALBUTEROL HCL NEB 1.25 MG/3 ML AMPUL NEB PRN (09:00)
[2018-08-07] MEDS ORDERED: LOSARTAN POTASSIUM 50 MG TABLET PO SCH (10:00)
[2018-08-07] MEDS ORDERED: LEVOTHYROXINE SODIUM 0.05 MG TABLET PO SCH (10:00)
[2018-08-07] MEDS ORDERED: POTASSIUM CHLORIDE 10 MEQ CAPSULE.ER PO SCH (10:00)
[2018-08-07] MEDS ORDERED: DOCUSATE SODIUM 100 MG CAPSULE PO SCH (10:00)
[2018-08-07] MEDS ORDERED: MELOXICAM 15 MG TABLET PO SCH (10:00)
[2018-08-07] MEDS ORDERED: CLOPIDOGREL BISULFATE 75 MG TABLET PO SCH (10:00)
--- NOTE | 2018-08-07 12:25 | PDOC DISCHARGE SUMMARY ---
General - Admit/Disc Date/PCP Admission Date/Primary Care Provider: 08/06/18 23:22 DENAE RAMIREZ MD Discharge Date: 08/07/18 - Discharge Diagnosis (1) Episode of syncope Is this a current diagnosis for this admission?: Yes Summary: Patient will be evaluated with a carotid Doppler and an echocardiogram as well as telemetry monitoring throughout his hospital course. Potential causes of syncope will be evaluated utilizing a thyroid profile and serial metabolic profiles, magnesium levels and Accu-Cheks. 08/07/2018-patient was admitted with syncope CT head was negative. This morning alert oriented communicating well. TSH is 3.25 within normal limits. (2) Contusion of right chest wall Is this a current diagnosis for this admission?: Yes Summary: Patient will have available acetaminophen and tramadol for pain control with Nubain 10 mg IV every 3 hours as needed for more severe pain. 08/07/2018-patient admitted with contusion of the right chest wall denies any pains today. X-rays are negative for any fractures. (3) Chronic obstructive pulmonary disease Is this a current diagnosis for this admission?: Yes Summary: Patient be maintained on a routine therapeutic regiment for chronic obstructive pulmonary disease during his hospital course utilizing nebulized Xopenex, Atrovent and Pulmicort. He will receive supplemental oxygen if required. 08/[id number]-old male admitted and he has history of COPD. He received nebulizer treatments, Xopenex, Atrovent, Pulmicort pulse ox is 98% on room air this morning. Patient is going home today. (4) Multiple abrasions Is this a current diagnosis for this admission?: Yes Summary: Bactroban ointment will be applied to abrasions 2 times daily and dressings will be applied as needed. Wounds will be cleansed 2 times daily with soap and water prior to dressing. Wound will be closely observed for any signs of infection or excessive bleeding. 08/07/2018-patient admitted with multiple abrasions on the nose on the face no signs of infection. Family advised to clean the wounds with soap and water twice a day. - Additional Information Resuscitation Status: Full Code Discharge Diet: Diabetic Discharge Activity: Activity As Tolerated Home Medications: Atorvastatin Calcium [Lipitor 20 mg Tablet] 20 mg PO QHS 04/06/11 Furosemide [Lasix 40 mg Tablet] 40 mg PO QAM 04/06/11 Meloxicam 15 mg PO DAILY 04/06/11 Multivitamin [Multivitamins] 1 each PO DAILY 04/06/11 [place]-3 Fatty Acids/Fish Oil [Fish Oil 1,000 mg Capsule] 1 each PO BID 04/06/11 Potassium Chloride [Klor-Con 10 Meq Capsule ER] 10 meq PO DAILY 04/06/11 Clopidogrel Bisulfate [Plavix 75 mg Tablet] 75 mg PO DAILY 03/14/13 Levothyroxine Sodium [Synthroid] 100 mcg PO Q6AM 03/14/13 Albuterol Sulfate [Albuterol Sulfate Hfa] 2 puff IH Q6HP PRN 08/07/18 Albuterol Sulfate [Ventolin 0.083% Neb 2.5 mg/3 mL Ampul] 1 vial NEB RTQ6HP PRN 08/07/18 Fluoxetine HCl [Prozac 20 mg Capsule] 20 mg PO DAILY 08/07/18 Losartan Potassium [Cozaar 25 mg Tablet] 25 mg PO DAILY 08/07/18 Losartan Potassium [Cozaar 50 mg Tablet] 50 mg PO DAILY tablet 08/07/18 Metformin HCl [Metformin HCl ER] 500 mg PO WSUPPER 08/07/18 Metoprolol Succinate [Toprol Xl 25 mg Tab.sr] 12.5 mg PO DAILY 08/07/18 Tramadol HCl [Ultram 50 mg Tablet] 50 mg PO Q8HP PRN tablet 08/07/18 History of Present Illness History of Present Illness: GEOFF DUNCAN is a 82 year old male 82 year old male who presented to the emergency room with a syncopal episode. He admits that he was walking at home this afternoon and suddenly fell to the ground face first. He commented to his after the incident that he thought he may have fainted, and currently he has no memory of what may have caused him to fall. He remembers events prior to the fall and denies nausea, palpitations, dizziness, pain or other symptoms, but he does not remember the actual fall. He sustained contusions and abrasions to his face, right knee and both hands as well as a contusion to his right clavicular chest area in the fall. He complains only of mild local pain in his hands and mild to moderate pain in his right sub-clavicular chest. He denies prior similar episodes and has not identified any aggravating or ameliorating factors for his syncopal episode. In the emergency room he was found to have negative x-rays of his right hand, chest and ribs. He was also found to have a negative CT scan of his head and neck. He was subsequently admitted to the hospital for further evaluation. Physical Exam Vital Signs: Temp Pulse Resp BP Pulse Ox 97.5 F 54 L 18 147/65 H 98 08/07/18 09:53 08/07/18 09:53 08/07/18 09:53 08/07/18 09:53 08/07/18 09:53 Intake & Output 08/06/18 08/07/18 08/08/18 06:59 06:59 06:59 Intake Total 0 Balance 0 Weight 94.3 kg General appearance: PRESENT: no acute distress, obese Head exam: PRESENT: atraumatic Eye exam: PRESENT: PERRLA Mouth exam: PRESENT: moist, tongue midline Neck exam: ABSENT: carotid bruit, JVD, lymphadenopathy, thyromegaly Respiratory exam: PRESENT: clear to auscultation catia. ABSENT: rales, rhonchi, wheezes Cardiovascular exam: PRESENT: RRR. ABSENT: diastolic murmur, rubs, systolic murmur GI/Abdominal exam: PRESENT: normal bowel sounds, soft. ABSENT: distended, guarding, mass, organolmegaly, rebound, tenderness Rectal exam: PRESENT: deferred Extremities exam: PRESENT: full ROM. ABSENT: calf tenderness, clubbing, pedal edema Neurological exam: PRESENT: alert, awake, oriented to person, oriented to place, oriented to time, oriented to situation, CN II-XII grossly intact. ABSENT: motor sensory deficit Psychiatric exam: PRESENT: appropriate affect, normal mood. ABSENT: homicidal ideation, suicidal ideation Results Laboratory Results: 08/07/18 06:25 08/07/18 06:25 08/06/18 08/06/18 08/06/18 19:48 19:48 22:13 WBC 11.0 H RBC 4.62 Hgb 12.9 L Hct 39.0 MCV 84 MCH 27.8 MCHC 33.0 RDW 14.4 H Plt Count 273 Seg Neutrophils % 59.2 Lymphocytes % 22.7 Monocytes % 11.5 Eosinophils % 5.8 Basophils % 0.8 Absolute Neutrophils 6.5 Absolute Lymphocytes 2.5 Absolute Monocytes 1.3 Absolute Eosinophils 0.6 Absolute Basophils 0.1 Sodium 140.6 Potassium 4.3 Chloride 103 Carbon Dioxide 28 Anion Gap 10 BUN 17 Creatinine 1.15 Est GFR ( Amer) > 60 Est GFR (Non-Af Amer) > 60 Glucose 163 H Calcium 9.7 Magnesium Total Bilirubin 0.5 AST 33 ALT 14 L Alkaline Phosphatase 74 Total Protein 7.9 Albumin 4.3 Triglycerides Cholesterol LDL Cholesterol Direct VLDL Cholesterol HDL Cholesterol TSH Free T4 Free T3 pg/mL Urine Color YELLOW Urine Appearance CLEAR Urine pH 5.0 Ur Specific [place] 1.018 Urine Protein NEGATIVE Urine Glucose (UA) NEGATIVE Urine Ketones NEGATIVE Urine Blood NEGATIVE Urine Nitrite NEGATIVE Ur Leukocyte Esterase NEGATIVE Urine WBC (Auto) 1 Urine RBC (Auto) 1 08/07/18 08/07/18 08/07/18 06:25 06:25 06:25 WBC 9.2 RBC 4.54 Hgb 12.4 L Hct 38.1 MCV 84 MCH 27.4 MCHC 32.6 RDW 14.6 H Plt Count 252 Seg Neutrophils % Lymphocytes % Monocytes % Eosinophils % Basophils % Absolute Neutrophils Absolute Lymphocytes Absolute Monocytes Absolute Eosinophils Absolute Basophils Sodium 143.7 Potassium 4.1 Chloride 104 Carbon Dioxide 31 H Anion Gap 9 BUN 15 Creatinine 1.11 Est GFR ( Amer) > 60 Est GFR (Non-Af Amer) > 60 Glucose 105 Calcium 9.5 Magnesium 2.2 Total Bilirubin AST ALT Alkaline Phosphatase Total Protein Albumin Triglycerides 171 H Cholesterol 140.23 LDL Cholesterol Direct 80 VLDL Cholesterol 34.2 H HDL Cholesterol 44 TSH 3.25 Free T4 1.23 Free T3 pg/mL 3.28 Urine Color Urine Appearance Urine pH Ur Specific [place] Urine Protein Urine Glucose (UA) Urine Ketones Urine Blood Urine Nitrite Ur Leukocyte Esterase Urine WBC (Auto) Urine RBC (Auto) 08/06/18 08/06/18 08/06/18 19:48 23:45 23:45 Creatine Kinase 129 CK-MB (CK-2) 0.45 Troponin I < 0.012 < 0.012 NT-Pro-B Natriuret Pep 08/07/18 08/07/18 06:25 06:25 Creatine Kinase 135 CK-MB (CK-2) 0.48 Troponin I < 0.012 NT-Pro-B Natriuret Pep 400 Impressions: Chest X-Ray 08/06/18 19:06 IMPRESSION: No evidence of acute cardiopulmonary disease. Hand X-Ray 08/06/18 19:07 IMPRESSION: No acute fracture or dislocation. Cervical Spine CT 08/06/18 19:11 IMPRESSION: No acute fracture or subluxation. Degenerative changes. Head CT 08/06/18 19:13 IMPRESSION: No acute intracranial abnormalities. Ribs X-Ray 08/06/18 21:20 IMPRESSION: No right rib fracture or focal right rib lesion. Qualifiers - * PATIENT BEING DISCHARGED WITH ANY OF THE FOLLOWING DIAGNOSIS: No VTE patient discharged on overlapping Therapy?: No Acute Heart Failure Is this a Heart Failure Patient?: No Plan Discharge Plan: Patient is discharged home. Time Spent: Greater than 30 Minutes
[2018-08-07] MEDS ORDERED: ATORVASTATIN CALCIUM 20 MG TABLET PO SCH (22:00)
== END 2018-08-07 10:27 | disposition home or self-care (01) | DRG 312 ==
LOC: ER 18:11 → OBSVTOIN 23:22 → EH 23:22 → 4N 08-07 00:45
PROVIDERS: ADMIT Emergency Medicine; ATTEND Emergency Medicine
PROC: 3E0F73Z Introduction of Anti-inflammatory into Respiratory Tract, Via Natural or Artificial Opening (ICD-10-PCS; principal; 2018-08-06)
DX: R55 Syncope and collapse (principal); S20.211A Contusion of right front wall of thorax, initial encounter; X58.XXXA Exposure to other specified factors, initial encounter; J44.9 Chronic obstructive pulmonary disease, unspecified; T14.8XXA Other injury of unspecified body region, initial encounter; S00.81XA Abrasion of other part of head, initial encounter; S60.511A Abrasion of right hand, initial encounter; S80.211A Abrasion, right knee, initial encounter; S60.512A Abrasion of left hand, initial encounter; E66.9 Obesity, unspecified; Z68.35 Body mass index [BMI] 35.0-35.9, adult; I25.10 Atherosclerotic heart disease of native coronary artery without angina pectoris; E78.5 Hyperlipidemia, unspecified; I10 Essential (primary) hypertension; E03.9 Hypothyroidism, unspecified; E11.9 Type 2 diabetes mellitus without complications; Y92.009 Unspecified place in unspecified non-institutional (private) residence as the place of occurrence of the external cause; Z23 Encounter for immunization; Z79.899 Other long term (current) drug therapy; Z79.02 Long term (current) use of antithrombotics/antiplatelets; Z79.84 Long term (current) use of oral hypoglycemic drugs; Z87.891 Personal history of nicotine dependence; Z88.6 Allergy status to analgesic agent
CPT/HCPCS: 36415; 70450; 71046; 72125; 80048; 80053; 80061; 81001; 82550; 82553; 82962; 83036; 83735; 83880; 84439; 84443; 84481; 84484; 85025; 85027; 90471; 90715; 93005; 93010; 94640; 99285; J3490

== ENCOUNTER 2018-09-20 10:49 | Emergency (ER) | payer MEDICARE, BC ==
[2018-09-20] MEDS ORDERED: LIDOCAINE 1%/EPINEPHRINE INJ 20 ML VIAL INJ ONE (12:09)
[2018-09-20] MEDS ORDERED: DIPH/PERTUSS(ACELL)/TETANUS VAC/PF 0.5 ML SYR (>=10YO) IM ONE (12:09)
--- NOTE | 2018-09-20 12:10 | ER Document Report ---
ED Medical Screen (RME) - General Chief Complaint: Leg Injury Stated Complaint: LEG PAIN Time Seen by Provider: 09/20/18 11:58 Primary Care Provider: DENAE RAMIREZ MD [Primary Care Provider] - Follow up as needed Information source: Patient Notes: Patient states that he bumped up against a band saw this morning cutting his right lower leg. Patient with large laceration to right lower leg. Patient states area would not stop bleeding due to the fact that he takes Plavix. I have greeted and performed a rapid initial assessment of this patient. A comprehensive ED assessment and evaluation of the patient, analysis of test results and completion of the medical decision making process will be conducted by additional ED providers. TRAVEL OUTSIDE OF THE [place] IN LAST 30 DAYS: No - Related Data Allergies/Adverse Reactions: codeine [Codeine] Allergy (Intermediate, Verified 09/20/18 10:50) Past Medical History - Social History Frequency of alcohol use: None Drug Abuse: None - Past Medical History Cardiac Medical History: Reports: Hx Coronary Artery Disease, Hx Hypercholesterolemia, Hx Hypertension - MEDICATED Denies: Hx Heart Attack Pulmonary Medical History: Reports: Hx Bronchitis, Hx COPD, Hx Pneumonia Denies: Hx Asthma, Hx Intubation, Hx Respiratory Failure Neurological Medical History: Denies: Hx Cerebrovascular Accident, Hx Seizures Endocrine Medical History: Reports: Hx Diabetes Mellitus Type 2 - Prediabetic, Hx Hypothyroidism. Denies: Hx Diabetes Mellitus Type 1, Hx Hyperthyroidism Renal/ Medical History: Denies: Hx Peritoneal Dialysis GI Medical History: Denies: Hx Cirrhosis, Hx Hepatitis, Hx Hiatal Hernia, Hx Ulcer Musculoskeltal Medical History: Reports Hx Arthritis, Denies Hx Fibromyalgia, Denies Hx Gout Skin Medical History: Denies Hx Eczema, Denies Hx Psoriasis Psychiatric Medical History: Denies: Hx Depression Infectious Medical History: Denies: Hx Hepatitis Past Surgical History: Reports: Hx Cardiac Catheterization - stents, Hx Cholecystectomy, Hx Coronary Stent. Denies: Hx Open Heart Surgery, Hx Pacemaker - Immunizations Hx Diphtheria, Pertussis, Tetanus Vaccination: No Physical Exam - Vital signs Vitals: Temp Pulse Resp BP Pulse Ox 97.4 F 57 L 20 130/63 H 94 09/20/18 11:02 09/20/18 11:02 09/20/18 11:02 09/20/18 11:02 09/20/18 11:02 - Skin Skin irregularity: Laceration - 7 cm laceration to right lower leg, bleeding stopped at this time with clot over open wound. Course - Vital Signs Vital signs: Temp Pulse Resp BP Pulse Ox 97.4 F 57 L 20 130/63 H 94 09/20/18 11:02 09/20/18 11:02 09/20/18 11:02 09/20/18 11:02 09/20/18 11:02 Doctor's Discharge - Discharge Referrals: DENAE RAMIREZ MD [Primary Care Provider] - Follow up as needed
[2018-09-20] MEDS ORDERED: LIDOCAINE 1%/EPINEPHRINE INJ 20 ML VIAL ONE (14:26)
--- NOTE | 2018-09-20 14:27 | ER Document Report ---
HPI - HPI Time Seen by Provider: 09/20/18 11:58 Pain Level: 2 Context: Patient is a 82-year-old male with a history of cardiac stents, hypertension, COPD who presents to the emergency department with a right lower leg laceration. Patient states around 930 this morning he bumped up against a metal bench and obtained a laceration. The states she attempted to control the bleeding with gauze but was unable to so they sought care in the emergency department. Patient states his tetanus shot is not up-to-date but that they did update his tetanus in triage. Patient denies pain. Patient states he is on Plavix due to the cardiac stents but denies any other blood thinners such as Coumadin or Eliquis. Patient has been able to ambulate appropriately with the laceration. Denies active bleeding. She denies a history of diabetes. - MUSCULOSKELETAL Musculoskeletal: REPORTS: Extremity pain - right lower leg - DERM Skin Color: Normal Past Medical History - General Information source: Patient - Social History Smoking Status: Former Smoker Chew tobacco use (# tins/day): Yes - History Frequency of alcohol use: None Drug Abuse: None Lives with: Family Family History: Malignancy - Mother. denies: CAD, CVA, DM, Hypertension Patient has suicidal ideation: No Patient has homicidal ideation: No - Past Medical History Cardiac Medical History: Reports: Hx Coronary Artery Disease, Hx Hypercholesterolemia, Hx Hypertension - MEDICATED Denies: Hx Heart Attack Pulmonary Medical History: Reports: Hx Bronchitis, Hx COPD, Hx Pneumonia Denies: Hx Asthma, Hx Intubation, Hx Respiratory Failure EENT Medical History: Reports: None Neurological Medical History: Denies: Hx Cerebrovascular Accident, Hx Seizures Endocrine Medical History: Reports: Hx Diabetes Mellitus Type 2 - Prediabetic, Hx Hypothyroidism. Denies: Hx Diabetes Mellitus Type 1, Hx Hyperthyroidism Renal/ Medical History: Reports: None. Denies: Hx Peritoneal Dialysis Malignancy Medical History: Reports None GI Medical History: Reports: None. Denies: Hx Cirrhosis, Hx Hepatitis, Hx Hiatal Hernia, Hx Ulcer Musculoskeletal Medical History: Reports Hx Arthritis, Denies Hx Fibromyalgia, Denies Hx Gout Skin Medical History: Reports None, Denies Hx Eczema, Denies Hx Psoriasis Psychiatric Medical History: Reports: None Denies: Hx Depression Traumatic Medical History: Reports: None Infectious Medical History: Reports: None. Denies: Hx Hepatitis Past Surgical History: Reports: Hx Cardiac Catheterization - 3 stents, Hx Cholecystectomy, Hx Coronary Stent. Denies: Hx Open Heart Surgery, Hx Pacemaker - Immunizations Hx Diphtheria, Pertussis, Tetanus Vaccination: No Hx Pneumococcal Vaccination: 03/08/10 Vertical Provider Document - CONSTITUTIONAL Agree With Documented VS: Yes Exam Limitations: No Limitations General Appearance: No Apparent Distress - INFECTION CONTROL TRAVEL OUTSIDE OF THE [place] IN LAST 30 DAYS: No - HEENT HEENT: Atraumatic, Normocephalic - NECK Neck: Normal Inspection - RESPIRATORY Respiratory: Breath Sounds Normal, No Respiratory Distress - CARDIOVASCULAR Cardiovascular: Regular Rate, Regular Rhythm - BACK Back: Normal Inspection - MUSCULOSKELETAL/EXTREMETIES Notes: + flexion and extension of the right foot, +2 strong palpable dorsalis pedis and posterior tibial pulses. - NEURO Level of Consciousness: Awake, Alert, Appropriate - DERM Integumentary: Warm, Dry, No Rash, Laceration Adult Front & Back Diagram: 1 - RLE lateral wound laceration - half kim shaped. Course - Re-evaluation Re-evalutation: 09/20/18 14:26 Tetanus shot is up-to-date as it was given in triage. Patient's wound was evaluated and there is no active bleeding but there is a large clot. Will appropriately numb the area and explore the wound. - Vital Signs Vital signs: Temp Pulse Resp BP Pulse Ox 97.4 F 57 L 20 130/63 H 94 09/20/18 11:02 09/20/18 11:02 09/20/18 11:02 09/20/18 11:02 09/20/18 11:02 Procedures - Laceration/Wound Repair Right Lower Leg Time completed: 15:00 Wound length (cm): 7 Wound's Depth, Shape: Irregular, Flap Laceration pre-procedure: Sterile PPE donned, Sterile drapes applied, Shur-Clens applied Anesthetic type: 1% Lidocaine w/epi Volume Anesthetic (mLs): 6 Wound explored: Clean Irrigated w/ Saline (mLs): 250 Wound Debrided: Moderate Wound Repaired With: Sutures Suture Size/Type: 3:0, Nylon Number of Sutures: 14 Post-procedure wound care: Sterile dressing applied Complications: Yes Notes: 09/20/18 15:32 After the patient was anesthetized with lidocaine at the laceration site, I did copiously irrigate the wound and removed a large amount of blood clots that had formed underneath the skin flap. I was able to visualize subcutaneous tissue without muscle or bone involvement. The wound was easily approximated and the patient tolerated well. Discharge - Discharge Clinical Impression: Leg laceration Qualifiers: Encounter type: initial encounter Laterality: right Qualified Code(s): S81.811A - Laceration without foreign body, right lower leg, initial encounter Condition: Stable Disposition: HOME, SELF-CARE Additional Instructions: Today you were seen in the emergency department for a laceration to the right lower extremity. The wound was copiously irrigated with soap and saline. 14 sutures were used to repair the wound. I have placed a nonstick dressing to the site but will need to be removed in 2 days. The laceration may lose over the next few days. Remove the dressing in 2 days please monitor for signs and symptoms of infection to include redness that streaks up the leg or down to the foot, fever, warm to touch, foul-smelling drainage or any other concerns. Keep the area clean and dry and covered. Sutures need to be removed in about 10 to 12 days. He may return to the emergency department to have the sutures removed or go to your primary care physician. Tetanus Immunization Given You have been given an immunization against tetanus. Please record this in your records. In general, a booster is needed only once every 10 years. The tetanus shot protects against tetanus or "lockjaw," which is a complication of certain wound infections (the tetanus shot cannot protect against the actual infection). The immunization site may become warm and red due to local reaction. If this occurs, apply warm compresses and take aspirin or ibuprofen to reduce inflammation and discomfort. Return for evaluation if the reaction becomes severe. Laceration Care Your laceration has been sutured to keep the skin edges aligned during healing. The time of suture removal depends on the nature and location of your cut. Please follow the care instructions the doctor has outlined for you and return for further care, according to the schedule you've been given. Keep the wound and dressing clean. Unless you were told otherwise, you may shower daily, blotting the wound dry with a clean, unused towel. At other times, If the dressing gets wet or blood soaked, remove it and blot the wound dry, then reapply a new dressing. Unless you were instructed otherwise, dressings should be changed at least daily. If any signs of infection occur (swelling, redness, increasing tenderness, red streaks, tender lumps in the armpit or groin above the laceration, or fe lorena), see the doctor immediately. Referrals: DENAE RAMIREZ MD [ACTIVE STAFF] - Follow up as needed
[2018-09-20 15:49] VITALS: BP 129/58
== END 2018-09-20 15:49 | disposition home or self-care (01) ==
LOC: ER 10:49
DX: S81.811A Laceration without foreign body, right lower leg, initial encounter (principal); W22.8XXA Striking against or struck by other objects, initial encounter; Z23 Encounter for immunization; I25.10 Atherosclerotic heart disease of native coronary artery without angina pectoris; I10 Essential (primary) hypertension; J44.9 Chronic obstructive pulmonary disease, unspecified; Z95.5 Presence of coronary angioplasty implant and graft; Z79.02 Long term (current) use of antithrombotics/antiplatelets; Z87.891 Personal history of nicotine dependence
CPT/HCPCS: 90471; 90715; 99282

== ENCOUNTER → 2019-06-01 | Outpatient (CLI) | payer MEDICARE, BC ==
--- NOTE | 2019-06-01 10:09 | RADIOLOGY REPORT (SQ) ---
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 4 fluoroscopic spot images were obtained and saved to pac's. TECHNIQUE: Fluoroscopy of the chest and diaphragm was performed for evaluation of diaphragmatic move ment during respiration, including sniff. Fluoroscopic images were obtained and saved to PACS. LIMITATIONS: None. FINDINGS: RIGHT DIAPHRAGM : Chronic elevation of the right hemidiaphragm, unchanged. Normal movemen t. LEFT DIAPHRAGM: Normal movement. SNIFF: No paradoxical a variation of the either hemidiaphragm during sniff. IMPRESSION: CHRONIC ELEVATION THE RIGHT HEMIDIAPHRAGM, UNCHANGED, OTHERWISE NORMAL DIAPHRAGM EXERTIO N ON INSPIRATION AND EXPIRATION. COMMENT: PQRS [id number]: Fluoroscopy time of the procedure is documented in the report. TECHNICAL DOCUMENTATION: JOB ID: [id number] 2010 [employer]- All Rights Reserved Reading location - IP/workstation name: [email or web address]
--- NOTE | 2019-06-01 10:12 | RADIOLOGY REPORT (SQ) ---
EXAM DESCRIPTION: CHEST 2 VIEWS COMPLETED DATE/TIME: 06/01/2019 9:22 am REASON FOR STUDY: J98.6 DISORDERS OF DIAPHRAGM COMPARISON: 08/06/2018 EXAM PARAMETERS: NUMBER OF VIEWS: two views TECHNIQUE: Digital Frontal and Lateral radiographic views of the chest acquired. RADIATION DOSE: NA LIMITATIONS: none FINDINGS: LUNGS AND PLEURA: Stable elevation of the right hemidiaphragm. No effusions. No consolid ation. MEDIASTINUM AND HILAR STRUCTURES: No masses or contour abnormalities. HEART AND VASCULAR STRUCTURES: Heart normal size. No evidence for failure. BONES: No acute findings. HARDWARE: None in the chest. OTHER: No other significant finding. IMPRESSION: No interval change in the chest. Elevation of the right hemidiaphragm. TECHNICAL DOCUMENTATION: JOB ID: [id number] 2010 [employer]- All Rights Reserved Reading location - IP/workstation name: [email or web address]
--- NOTE | 2019-06-01 10:53 | RADIOLOGY REPORT (SQ) ---
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 Images reviewed with lung, soft tissue and bone windows. Reconstructed coronal and sagittal MPR images reviewed. All images st ored on PACS. All CT scanners at this facility use dose modulation, iterative reconstruction, and/or weight based d osing when appropriate to reduce radiation dose to as low as reasonably achievable (ALARA). [facility]: Dose Right [facility]: CareDose [facility]: Dose Right [facility]: Teradose 4D [facility]: Best Response Strategies RADIATION DOSE: CT Rad equipment meets quality standard of care and radiation dose reduction techniq ues were employed. CTDIvol: 17.0 mGy. DLP: 714 mGy-cm. mGy. LIMITATIONS: No technical limitations. FINDINGS: LUNGS AND PLEURA: Persistent elevation of the right hemidiaphragm with associated right ba silar atelectasis possibly scar. There is some calcified pleural plaque on the left which is unchang ed. No consolidation. No suspicious pulmonary nodules. No effusions. HILAR AND MEDIASTINAL STRUCTURES: No identified masses or abnormal nodes. No obvious aneurysm. HEART AND VASCULAR STRUCTURES: Moderate coronary artery calcification. No pericardial effusion. UPPER ABDOMEN: No significant findings. Limited exam. THYROID AND OTHER SOFT TISSUES: No masses. No adenopathy. BONES: No significant finding. HARDWARE: None in the chest. OTHER: No other significant findings. IMPRESSION: Stable elevation right hemidiaphragm with right basilar atelectasis with scarring. Calc ified pleural plaque on the left. No significant interval change from 2018. TECHNICAL DOCUMENTATION: JOB ID: [id number] Quality ID # [id number]: Final reports with documentation of one or more dose reduction techniques (e.g., Au tomated exposure control, adjustment of the mA and/or kV according to patient size, use of iterative reconstruction technique) 2010 [employer]- All Rights Reserved Reading location - IP/workstation name: [email or web address]
== END ==
LOC: RAD 08:48
PROVIDERS: ATTEND Internal Medicine Pulmonary Disease
DX: J43.2 Centrilobular emphysema (principal); J98.6 Disorders of diaphragm
CPT/HCPCS: 71046; 71250; 76000